=== PATIENT | male | born 1955 | race African-American/Black ===

== ENCOUNTER 2018-10-18 12:18 | Emergency (ER) | payer OTHER ==
[~2018-10-18] VITALS: Ht 172.7 cm; Wt 102.0 kg
[2018-10-18 13:32] LABS: BASOPHILS % 0.4 % (0.0-2.0); EOSINOPHILS % 5.4 % (0.0-5.0); HEMATOCRIT. 43.4 % (42.0-52.0); HEMOGLOBIN. 14.7 g/dL (14.0-18.0); LYMPHOCYTES % 28.5 % (20.0-50.0); MEAN CORPUSCULAR HEMOGLOBIN 30.7 pg (28.0-32.0); MEAN CORPUSCULAR VOLUME 90.7 fL (80.0-94.0); MEAN PLATELET VOLUME 9.2 fl (7.4-10.4); MONOCYTES % 8.8 % (2.0-8.0); NEUTROPHILS % 56.9 % (40.0-76.0); PLATELET 187 x1000/uL (130-400); RED BLOOD CELL COUNT 4.79 mill/uL (4.7-6.1); RED CELL DISTRIBUTION WIDTH 14.1 % (11.6-14.6)
[2018-10-18 13:36] LABS: CHLORIDE 106 mEq/L (98-107)
[2018-10-18 13:37] LABS: INR 0.9; PROTHROMBIN TIME 9.7 sec (9.6-11.0)
[2018-10-18] MEDS ORDERED: ACETAMINOPHEN WITH CODEINE 300/30MG TABLET PO ONE (14:15)
[2018-10-18 15:58] VITALS: BP 138/78
[2018-10-19] MEDS ORDERED: AMLO10TA4 MT (12:26)
[2018-10-19] MEDS ORDERED: LISI10TA5 MT (12:26)
[2018-10-19] MEDS ORDERED: METF-414 PO (12:26)
== END 2018-10-18 16:06 | disposition left against medical advice (07) ==
LOC: ER 12:18
DX: R60.0 Localized edema (principal); I50.9 Heart failure, unspecified; I10 Essential (primary) hypertension; F17.210 Nicotine dependence, cigarettes, uncomplicated; Z86.718 Personal history of other venous thrombosis and embolism
CPT/HCPCS: 36415; 71045; 80053; 83880; 84484; 85025; 85610; 93005; 93971; 99284; Z7610

== ENCOUNTER 2018-10-18 21:58 | Inpatient (IN) | payer MEDICAID, OTHER ==
[~2018-10-18] VITALS: Ht 172.7 cm; Wt 105.3 kg
[2018-10-18 23:59] LABS: BASOPHILS % 0.7 % (0.0-2.0); EOSINOPHILS % 5.3 % (0.0-5.0); HEMATOCRIT. 43.1 % (42.0-52.0); HEMOGLOBIN. 14.6 g/dL (14.0-18.0); MEAN CORPUSCULAR HEMOGLOBIN 30.6 pg (28.0-32.0); MEAN CORPUSCULAR VOLUME 90.3 fL (80.0-94.0); MEAN PLATELET VOLUME 9.5 fl (7.4-10.4); MONOCYTES % 9.5 % (2.0-8.0); NEUTROPHILS % 53.5 % (40.0-76.0); PLATELET 190 x1000/uL (130-400); RED BLOOD CELL COUNT 4.77 mill/uL (4.7-6.1); RED CELL DISTRIBUTION WIDTH 14.3 % (11.6-14.6)
[2018-10-19] LABS: CHLORIDE 106 mEq/L (98-107)
[2018-10-19 02:44] LABS: CLARITY URINE CLEAR (CLEAR); COLOR URINE YELLOW (YELLOW); KETONES URINE NEGATIVE (NEGATIVE); LEUKOCYTE ESTERASE URINE NEGATIVE (NEGATIVE); NITRITE URINE NEGATIVE (NEGATIVE); OCCULT BLOOD URINE NEGATIVE (NEGATIVE); PH URINE 5.5 (4.5-8.0); PROTEIN URINE NEGATIVE (NEGATIVE); SPECIFIC GRAVITY URINE 1.017 (1.005-1.030)
[2018-10-19] MEDS ORDERED: ACETAMINOPHEN 325MG TABLET PO PRN (09:45)
[2018-10-19] MEDS ORDERED: ONDANSETRON HCL 4MG/2ML INJ IV PRN (09:45)
[2018-10-19 10:28] VITALS: BP 166/82
[2018-10-19] MEDS: CLONIDINE 0.1MG TABLET PO PRN (10:33)
[2018-10-19 12:00] VITALS: BP 155/95
[2018-10-19] MEDS ORDERED: LISI10TA5 MT (12:26)
[2018-10-19] MEDS ORDERED: METF-414 PO (12:26)
[2018-10-19] MEDS ORDERED: AMLO10TA4 MT (12:26)
[2018-10-19] MEDS ORDERED: PNEUMOCOCCAL 23-VAL P-SAC VAC 0.5 ML IM ONE (12:30)
[2018-10-19] MEDS: FUROSEMIDE 40MG TABLET PO SCH (12:54)
[2018-10-19] MEDS: ENOXAPARIN 30MG/0.3ML SYR SUBCUT SCH ×2 (12:55→22:09)
[2018-10-19] MEDS: HYDRALAZINE HCL 50MG TABLET PO SCH ×2 (12:55→22:10)
[2018-10-19 15:07] LABS: *AMPHETAMINES SCREEN URINE NEGATIVE (NEGATIVE); *BARBITURATES SCREEN URINE NEGATIVE (NEGATIVE); *BENZODIAZEPINES SCREEN URINE NEGATIVE (NEGATIVE); *COCAINE SCREEN URINE NEGATIVE (NEGATIVE); OPIATES URINE SCREEN PRESUMTIVE POSITIVE (NEGATIVE)
[2018-10-19 15:08] LABS: CANNABINOID URINE SCREEN NEGATIVE (NEGATIVE); METHADONE URINE SCREEN NEGATIVE (NEGATIVE); PHENCYCLIDINE URINE SCREEN NEGATIVE (NEGATIVE)
[2018-10-19 15:15] LABS: CREATINE KINASE MB FRACTION 3.3 ng/mL (0.5-3.6); T4 FREE 0.88 ng/dL (0.76-1.46)
[2018-10-19 16:00] VITALS: BP 148/93
[2018-10-19] MEDS ORDERED: DEXTROSE 50% WATER 50ML SYRINGE IV PRN (16:00)
[2018-10-19] MEDS: BLOOD SUGAR DIAGNOSTIC STRIP TEST SCH ×2 (16:45→21:00)
[2018-10-19] MEDS: INSULIN LISPRO 100 UNITS/ML SUBCUT SCH ×2 (18:18→22:09)
[2018-10-19 20:00] VITALS: BP 167/92
[2018-10-19] MEDS: IPRATROPIUM/ALBUTEROL 0.5-3(2.5)MG/3ML NEB HHN PRN (20:44)
[2018-10-19] MEDS: BUDESONIDE 0.5MG/2ML NEB HHN SCH (20:44)
[2018-10-19] MEDS ORDERED: METOPROLOL TARTRATE 50MG TABLET PO SCH (21:00)
[2018-10-19] MEDS: AMLODIPINE 5MG TABLET PO SCH (22:10)
[2018-10-19] MEDS: ATORVASTATIN CALCIUM 20MG TABLET PO SCH (22:10)
[2018-10-20] VITALS: BP 136/78
[2018-10-20 00:23] LABS: CREATINE KINASE MB FRACTION 2.9 ng/mL (0.5-3.6)
[2018-10-20] MEDS: CLONIDINE 0.1MG TABLET PO PRN ×2 (03:47→16:32)
[2018-10-20 04:00] VITALS: BP 164/101
[2018-10-20] MEDS: INSULIN LISPRO 100 UNITS/ML SUBCUT SCH ×4 (06:27→21:00)
[2018-10-20] MEDS: BLOOD SUGAR DIAGNOSTIC STRIP TEST SCH ×4 (06:28→21:31)
[2018-10-20 06:37] LABS: BASOPHILS % 0.4 % (0.0-2.0); EOSINOPHILS % 5.1 % (0.0-5.0); HEMATOCRIT. 43.4 % (42.0-52.0); HEMOGLOBIN. 14.6 g/dL (14.0-18.0); LYMPHOCYTES % 27.1 % (20.0-50.0); MEAN CORPUSCULAR HEMOGLOBIN 30.4 pg (28.0-32.0); MEAN CORPUSCULAR VOLUME 90.6 fL (80.0-94.0); MEAN PLATELET VOLUME 9.1 fl (7.4-10.4); MONOCYTES % 9.3 % (2.0-8.0); NEUTROPHILS % 58.1 % (40.0-76.0); PLATELET 187 x1000/uL (130-400); RED BLOOD CELL COUNT 4.79 mill/uL (4.7-6.1); RED CELL DISTRIBUTION WIDTH 13.8 % (11.6-14.6)
[2018-10-20 06:58] LABS: CHLORIDE 105 mEq/L (98-107)
[2018-10-20 07:19] LABS: CREATINE KINASE MB FRACTION 2.8 ng/mL (0.5-3.6)
[2018-10-20 07:27] LABS: CREATINE KINASE 1586 IU/L (39-308)
[2018-10-20 08:00] VITALS: BP 157/98
[2018-10-20] MEDS: ASPIRIN 81MG TABLET PO SCH (09:43)
[2018-10-20] MEDS: FUROSEMIDE 40MG TABLET PO SCH (09:43)
[2018-10-20] MEDS: METOPROLOL TARTRATE 25MG TABLET PO SCH ×2 (09:44→21:30)
[2018-10-20] MEDS: AMLODIPINE 5MG TABLET PO SCH ×2 (09:44→21:31)
[2018-10-20] MEDS: HYDRALAZINE HCL 50MG TABLET PO SCH (09:44)
[2018-10-20] MEDS: ENOXAPARIN 30MG/0.3ML SYR SUBCUT SCH ×2 (09:45→21:29)
[2018-10-20] MEDS ORDERED: REGADENOSON 0.4 MG/5 ML IV NR (10:15)
[2018-10-20] MEDS: SODIUM CHLORIDE 0.9% 1,000 ML IV SCH ×2 (11:03→21:28)
[2018-10-20] MEDS ORDERED: REGADENOSON 0.4 MG/5 ML IV ONE (12:05)
[2018-10-20 16:00] VITALS: BP 182/89
[2018-10-20 20:00] VITALS: BP_SYST 156; BP_SYST 160; BP_DIAS 81; BP_DIAS 84
[2018-10-20] MEDS: HYDRALAZINE HCL 100MG TABLET PO SCH (21:30)
[2018-10-20] MEDS: ATORVASTATIN CALCIUM 20MG TABLET PO SCH (21:30)
[2018-10-20] MEDS: BUDESONIDE 0.5MG/2ML NEB HHN SCH ×2 (21:50→21:55)
[2018-10-20] MEDS: IPRATROPIUM/ALBUTEROL 0.5-3(2.5)MG/3ML NEB HHN PRN (21:55)
[2018-10-21] VITALS (9 sets, daily range): BP systolic 126–170; BP diastolic 65–101
[2018-10-21 06:20] LABS: CHLORIDE 105 mEq/L (98-107)
[2018-10-21] MEDS: BLOOD SUGAR DIAGNOSTIC STRIP TEST SCH ×4 (06:29→21:00)
[2018-10-21] MEDS: INSULIN LISPRO 100 UNITS/ML SUBCUT SCH ×4 (06:29→21:01)
[2018-10-21] MEDS: SODIUM CHLORIDE 0.9% 1,000 ML IV SCH ×2 (06:30→17:14)
[2018-10-21 06:38] LABS: BASOPHILS % 0.4 % (0.0-2.0); EOSINOPHILS % 5.2 % (0.0-5.0); HEMATOCRIT. 43.1 % (42.0-52.0); HEMOGLOBIN. 14.7 g/dL (14.0-18.0); LYMPHOCYTES % 23.6 % (20.0-50.0); MEAN CORPUSCULAR HEMOGLOBIN 30.7 pg (28.0-32.0); MEAN CORPUSCULAR VOLUME 89.9 fL (80.0-94.0); MEAN PLATELET VOLUME 9.2 fl (7.4-10.4); MONOCYTES % 10.4 % (2.0-8.0); NEUTROPHILS % 60.4 % (40.0-76.0); PLATELET 198 x1000/uL (130-400); RED BLOOD CELL COUNT 4.79 mill/uL (4.7-6.1); RED CELL DISTRIBUTION WIDTH 13.7 % (11.6-14.6)
[2018-10-21 06:43] LABS: CREATINE KINASE 1270 IU/L (39-308)
[2018-10-21] MEDS ORDERED: IODIXANOL 320MG/ML 100 ML BOTTLE IV ONE (07:22)
[2018-10-21] MEDS ORDERED: LIDOCAINE HCL 1% 20ML VIAL (Pyxis) INJ ONE (07:22)
[2018-10-21] MEDS ORDERED: FENTANYL CITRATE/PF 50MCG/ML 2ML VIAL ONE (07:57)
[2018-10-21] MEDS ORDERED: MIDAZOLAM HCL 2 MG/2 ML VIAL ONE (07:57)
[2018-10-21] MEDS ORDERED: ACETAMINOPHEN 325MG TABLET PO PRN (08:45)
[2018-10-21] MEDS ORDERED: ATROPINE SULFATE 1MG/10ML SYR IV PRN (08:45)
[2018-10-21] MEDS: ENOXAPARIN 30MG/0.3ML SYR SUBCUT SCH ×2 (09:00→21:00)
[2018-10-21] MEDS: BUDESONIDE 0.5MG/2ML NEB HHN SCH ×2 (09:58→21:50)
[2018-10-21] MEDS: FUROSEMIDE 40MG TABLET PO SCH (12:39)
[2018-10-21] MEDS: ASPIRIN 81MG TABLET PO SCH (12:40)
[2018-10-21] MEDS: AMLODIPINE 5MG TABLET PO SCH (12:40)
[2018-10-21] MEDS: METOPROLOL TARTRATE 25MG TABLET PO SCH ×2 (12:40→21:02)
[2018-10-21] MEDS: HYDRALAZINE HCL 100MG TABLET PO SCH ×2 (12:42→21:02)
[2018-10-21] MEDS: CLONIDINE 0.1MG TABLET PO PRN (17:43)
[2018-10-21] MEDS ORDERED: HYDRALAZINE 20MG/ML VIAL IV PRN (21:00)
[2018-10-21] MEDS: ATORVASTATIN CALCIUM 20MG TABLET PO SCH (21:01)
[2018-10-21] MEDS: LOSARTAN POTASSIUM 100 MG TABLET PO SCH (21:02)
[2018-10-22] VITALS (11 sets, daily range): BP systolic 134–183; BP diastolic 72–108
[2018-10-22] MEDS: SODIUM CHLORIDE 0.9% 1,000 ML IV SCH ×3 (04:24→22:39)
[2018-10-22] MEDS: BLOOD SUGAR DIAGNOSTIC STRIP TEST SCH ×4 (06:46→20:52)
[2018-10-22 07:01] LABS: BASOPHILS % 0.5 % (0.0-2.0); EOSINOPHILS % 4.9 % (0.0-5.0); HEMATOCRIT. 44.9 % (42.0-52.0); HEMOGLOBIN. 15.1 g/dL (14.0-18.0); LYMPHOCYTES % 22.5 % (20.0-50.0); MEAN CORPUSCULAR HEMOGLOBIN 30.5 pg (28.0-32.0); MEAN CORPUSCULAR VOLUME 90.6 fL (80.0-94.0); MONOCYTES % 10.7 % (2.0-8.0); NEUTROPHILS % 61.4 % (40.0-76.0); PLATELET 220 x1000/uL (130-400); RED BLOOD CELL COUNT 4.96 mill/uL (4.7-6.1)
[2018-10-22] MEDS: IPRATROPIUM/ALBUTEROL 0.5-3(2.5)MG/3ML NEB HHN PRN ×2 (07:15→15:05)
[2018-10-22] MEDS: BUDESONIDE 0.5MG/2ML NEB HHN SCH ×2 (07:15→21:03)
[2018-10-22] MEDS: INSULIN LISPRO 100 UNITS/ML SUBCUT SCH ×4 (07:20→20:52)
[2018-10-22 07:22] LABS: CHLORIDE 104 mEq/L (98-107)
[2018-10-22] MEDS ORDERED: LIDOCAINE HCL 1% 20ML VIAL (Pyxis) INJ ONE (07:24)
[2018-10-22] MEDS ORDERED: IODIXANOL 320MG/ML 200ML BOTTLE ONE (07:24)
[2018-10-22] MEDS ORDERED: DIPHENHYDRAMINE 50MG/ML VIAL ONE (07:33)
[2018-10-22] MEDS: ENOXAPARIN 30MG/0.3ML SYR SUBCUT SCH ×2 (08:01→20:39)
[2018-10-22] MEDS: ASPIRIN 81MG TABLET PO SCH (08:01)
[2018-10-22] MEDS ORDERED: MIDAZOLAM HCL 2 MG/2 ML VIAL ONE (08:20)
[2018-10-22] MEDS ORDERED: FENTANYL CITRATE/PF 50MCG/ML 2ML VIAL ONE (08:20)
[2018-10-22] MEDS: LOSARTAN POTASSIUM 100 MG TABLET PO SCH (12:26)
[2018-10-22] MEDS: HYDRALAZINE HCL 100MG TABLET PO SCH ×2 (12:26→20:37)
[2018-10-22] MEDS: FUROSEMIDE 40MG TABLET PO SCH (12:26)
[2018-10-22] MEDS: AMLODIPINE 10MG TABLET PEG SCH (12:26)
[2018-10-22] MEDS: METOPROLOL TARTRATE 25MG TABLET PO SCH ×2 (12:27→20:38)
[2018-10-22] MEDS: ATORVASTATIN CALCIUM 20MG TABLET PO SCH (20:36)
[2018-10-22] MEDS ORDERED: BUDESONIDE 0.5MG/2ML NEB ONE (20:58)
[2018-10-22] MEDS: CLONIDINE 0.1MG TABLET PO PRN (21:24)
[2018-10-23] VITALS (12 sets, daily range): BP systolic 135–160; BP diastolic 57–111
[2018-10-23] MEDS: BLOOD SUGAR DIAGNOSTIC STRIP TEST SCH ×4 (07:04→20:49)
[2018-10-23] MEDS: INSULIN LISPRO 100 UNITS/ML SUBCUT SCH ×4 (07:20→21:05)
[2018-10-23 07:28] LABS: BASOPHILS % 0.7 % (0.0-2.0); EOSINOPHILS % 6.8 % (0.0-5.0); HEMOGLOBIN. 14.5 g/dL (14.0-18.0); LYMPHOCYTES % 25.5 % (20.0-50.0); MEAN CORPUSCULAR HEMOGLOBIN 30.2 pg (28.0-32.0); MEAN CORPUSCULAR VOLUME 91.5 fL (80.0-94.0); MEAN PLATELET VOLUME 8.7 fl (7.4-10.4); MONOCYTES % 12.6 % (2.0-8.0); NEUTROPHILS % 54.4 % (40.0-76.0); PLATELET 206 x1000/uL (130-400); RED BLOOD CELL COUNT 4.81 mill/uL (4.7-6.1); RED CELL DISTRIBUTION WIDTH 14.1 % (11.6-14.6)
[2018-10-23] MEDS: SODIUM CHLORIDE 0.9% 1,000 ML IV SCH (08:57)
[2018-10-23] MEDS: AMLODIPINE 10MG TABLET PEG SCH (09:10)
[2018-10-23] MEDS: METOPROLOL TARTRATE 25MG TABLET PO SCH ×2 (09:10→20:49)
[2018-10-23] MEDS: LOSARTAN POTASSIUM 100 MG TABLET PO SCH (09:11)
[2018-10-23] MEDS: ASPIRIN 81MG TABLET PO SCH (09:11)
[2018-10-23] MEDS: ENOXAPARIN 30MG/0.3ML SYR SUBCUT SCH ×2 (09:11→20:50)
[2018-10-23] MEDS: FUROSEMIDE 40MG TABLET PO SCH (09:11)
[2018-10-23] MEDS: HYDRALAZINE HCL 100MG TABLET PO SCH ×2 (09:11→16:25)
[2018-10-23] MEDS: CLOPIDOGREL 75MG TABLET PO SCH (10:34)
[2018-10-23] MEDS: ATORVASTATIN CALCIUM 20MG TABLET PO SCH (20:49)
[2018-10-24] VITALS (12 sets, daily range): BP systolic 127–170; BP diastolic 61–105
[2018-10-24] MEDS: HYDRALAZINE HCL 100MG TABLET PO SCH ×3 (00:21→16:55)
[2018-10-24 06:11] LABS: CHLORIDE 106 mEq/L (98-107)
[2018-10-24 06:15] LABS: BASOPHILS % 0.4 % (0.0-2.0); HEMATOCRIT. 43.1 % (42.0-52.0); HEMOGLOBIN. 14.5 g/dL (14.0-18.0); LYMPHOCYTES % 27.7 % (20.0-50.0); MEAN CORPUSCULAR HEMOGLOBIN 30.6 pg (28.0-32.0); MEAN CORPUSCULAR VOLUME 90.6 fL (80.0-94.0); MEAN PLATELET VOLUME 9.1 fl (7.4-10.4); MONOCYTES % 11.6 % (2.0-8.0); NEUTROPHILS % 52.3 % (40.0-76.0); PLATELET 214 x1000/uL (130-400); RED BLOOD CELL COUNT 4.76 mill/uL (4.7-6.1); RED CELL DISTRIBUTION WIDTH 14.2 % (11.6-14.6)
[2018-10-24] MEDS: BLOOD SUGAR DIAGNOSTIC STRIP TEST SCH ×4 (07:00→20:47)
[2018-10-24] MEDS: INSULIN LISPRO 100 UNITS/ML SUBCUT SCH ×5 (08:38→20:48)
[2018-10-24] MEDS: CLOPIDOGREL 75MG TABLET PO SCH (08:40)
[2018-10-24] MEDS: LOSARTAN POTASSIUM 100 MG TABLET PO SCH (08:40)
[2018-10-24] MEDS: ENOXAPARIN 30MG/0.3ML SYR SUBCUT SCH ×2 (08:40→21:00)
[2018-10-24] MEDS: FUROSEMIDE 40MG TABLET PO SCH (08:40)
[2018-10-24] MEDS: METOPROLOL TARTRATE 25MG TABLET PO SCH ×2 (08:40→20:46)
[2018-10-24] MEDS: AMLODIPINE 10MG TABLET PEG SCH (08:40)
[2018-10-24] MEDS: ASPIRIN 81MG TABLET PO SCH (08:41)
[2018-10-24] MEDS: CLONIDINE 0.1MG TABLET PO PRN (18:29)
[2018-10-24] MEDS: ATORVASTATIN CALCIUM 20MG TABLET PO SCH (20:43)
[2018-10-24] MEDS: MINOXIDIL 2.5MG TABLET PO SCH (20:45)
[2018-10-25] VITALS (12 sets, daily range): BP systolic 134–167; BP diastolic 40–89
[2018-10-25] MEDS: HYDRALAZINE HCL 100MG TABLET PO SCH ×3 (00:37→19:02)
[2018-10-25] MEDS: BLOOD SUGAR DIAGNOSTIC STRIP TEST SCH ×4 (06:19→21:03)
[2018-10-25 07:00] LABS: BASOPHILS % 0.7 % (0.0-2.0); EOSINOPHILS % 7.2 % (0.0-5.0); HEMOGLOBIN. 14.5 g/dL (14.0-18.0); MEAN CORPUSCULAR HEMOGLOBIN 30.8 pg (28.0-32.0); MEAN CORPUSCULAR VOLUME 91.1 fL (80.0-94.0); MONOCYTES % 13.4 % (2.0-8.0); NEUTROPHILS % 52.7 % (40.0-76.0); PLATELET 231 x1000/uL (130-400); RED BLOOD CELL COUNT 4.72 mill/uL (4.7-6.1)
[2018-10-25 07:12] LABS: CHLORIDE 105 mEq/L (98-107)
[2018-10-25] MEDS: INSULIN LISPRO 100 UNITS/ML SUBCUT SCH ×4 (07:20→21:02)
[2018-10-25] MEDS: METOPROLOL TARTRATE 25MG TABLET PO SCH ×2 (09:00→21:01)
[2018-10-25] MEDS: ENOXAPARIN 30MG/0.3ML SYR SUBCUT SCH ×2 (09:00→21:00)
[2018-10-25] MEDS: AMLODIPINE 10MG TABLET PEG SCH (09:44)
[2018-10-25] MEDS: FUROSEMIDE 40MG TABLET PO SCH (09:44)
[2018-10-25] MEDS: ASPIRIN 81MG TABLET PO SCH (09:44)
[2018-10-25] MEDS: LOSARTAN POTASSIUM 100 MG TABLET PO SCH (09:44)
[2018-10-25] MEDS: CLOPIDOGREL 75MG TABLET PO SCH (09:44)
[2018-10-25] MEDS: MINOXIDIL 2.5MG TABLET PO SCH ×2 (12:01→21:03)
[2018-10-25] MEDS: ATORVASTATIN CALCIUM 20MG TABLET PO SCH (21:01)
[2018-10-26] VITALS (20 sets, daily range): BP systolic 111–159; BP diastolic 51–101
[2018-10-26] MEDS: HYDRALAZINE HCL 100MG TABLET PO SCH ×3 (00:07→18:16)
[2018-10-26 06:07] LABS: HEMATOCRIT 43.1 % (42.0-52.0); HEMOGLOBIN 14.5 g/dL (14.0-18.0); MEAN CORPUSCULAR HEMOGLOBIN 30.6 pg (28.0-32.0); PLATELET 247 x1000/uL (130-400); RED BLOOD CELL COUNT 4.73 mill/uL (4.7-6.1); RED CELL DISTRIBUTION WIDTH 14.1 % (11.6-14.6)
[2018-10-26] MEDS: BLOOD SUGAR DIAGNOSTIC STRIP TEST SCH ×4 (06:09→21:20)
[2018-10-26] MEDS: INSULIN LISPRO 100 UNITS/ML SUBCUT SCH ×4 (07:20→21:00)
[2018-10-26] MEDS ORDERED: IOHEXOL-300 100 ML BOTTLE ONE (07:27)
[2018-10-26] MEDS ORDERED: IODIXANOL 320MG/ML 200ML BOTTLE ONE (07:27)
[2018-10-26] MEDS ORDERED: LIDOCAINE HCL 1% 20ML VIAL (Pyxis) INJ ONE (07:27)
[2018-10-26] MEDS ORDERED: DIPHENHYDRAMINE 50MG/ML VIAL ONE (07:28)
[2018-10-26] MEDS ORDERED: MIDAZOLAM HCL 2 MG/2 ML VIAL ONE (07:28)
[2018-10-26] MEDS ORDERED: FENTANYL CITRATE/PF 50MCG/ML 2ML VIAL ONE (07:29)
[2018-10-26] MEDS ORDERED: ASPIRIN 325MG TABLET ONE (08:58)
[2018-10-26] MEDS ORDERED: CLOPIDOGREL 75MG TABLET ONE (08:59)
[2018-10-26] MEDS ORDERED: METOPROLOL TARTRATE 25MG TABLET PO SCH (09:00)
[2018-10-26] MEDS: CLOPIDOGREL 75MG TABLET PO SCH (09:00)
[2018-10-26] MEDS ORDERED: NICARDIPINE 100MCG/ML 10ML VIAL (CATH LAB) IV ONE (09:00)
[2018-10-26] MEDS: ASPIRIN 81MG TABLET PO SCH (09:00)
[2018-10-26] MEDS: ENOXAPARIN 30MG/0.3ML SYR SUBCUT SCH ×2 (09:00→21:20)
[2018-10-26] MEDS ORDERED: NITROGLYCERIN 50MCG/ML 10ML VIAL (CATH LAB) IV ONE (09:00)
[2018-10-26] MEDS ORDERED: HEPARIN SODIUM 1,000 UNIT/1ML VIAL IV ONE (09:00)
[2018-10-26] MEDS: MINOXIDIL 2.5MG TABLET PO SCH ×2 (09:00→21:20)
[2018-10-26] MEDS: SODIUM CHLORIDE 0.45% 1,000 ML IV SCH ×2 (10:27→19:00)
[2018-10-26] MEDS: FUROSEMIDE 40MG TABLET PO SCH (11:12)
[2018-10-26] MEDS: LOSARTAN POTASSIUM 100 MG TABLET PO SCH (11:12)
[2018-10-26] MEDS: AMLODIPINE 10MG TABLET PEG SCH (11:13)
[2018-10-26] MEDS ORDERED: ATORVASTATIN CALCIUM 40MG TABLET PO SCH (21:00)
[2018-10-26] MEDS: METOPROLOL TARTRATE 25MG TABLET PO SCH (21:19)
[2018-10-27] MEDS: HYDRALAZINE HCL 100MG TABLET PO SCH ×2 (00:07→10:35)
[2018-10-27 02:00] VITALS: BP 126/59
[2018-10-27 04:00] VITALS: BP 164/71
[2018-10-27 05:32] LABS: BASOPHILS % 0.7 % (0.0-2.0); EOSINOPHILS % 4.1 % (0.0-5.0); HEMATOCRIT. 45.2 % (42.0-52.0); HEMOGLOBIN. 15.3 g/dL (14.0-18.0); LYMPHOCYTES % 22.9 % (20.0-50.0); MEAN CORPUSCULAR HEMOGLOBIN 30.6 pg (28.0-32.0); MEAN CORPUSCULAR VOLUME 90.5 fL (80.0-94.0); MEAN PLATELET VOLUME 8.5 fl (7.4-10.4); MONOCYTES % 8.1 % (2.0-8.0); NEUTROPHILS % 64.2 % (40.0-76.0); PLATELET 271 x1000/uL (130-400)
[2018-10-27 05:39] LABS: CHLORIDE 105 mEq/L (98-107)
[2018-10-27 06:00] VITALS: BP 155/79
[2018-10-27] MEDS: BLOOD SUGAR DIAGNOSTIC STRIP TEST SCH (06:25)
[2018-10-27] MEDS: INSULIN LISPRO 100 UNITS/ML SUBCUT SCH (07:20)
[2018-10-27 08:00] VITALS: BP 141/89
[2018-10-27] MEDS: ASPIRIN 81MG TABLET PO SCH (08:36)
[2018-10-27] MEDS: AMLODIPINE 10MG TABLET PEG SCH (08:36)
[2018-10-27] MEDS: METOPROLOL TARTRATE 25MG TABLET PO SCH (08:36)
[2018-10-27] MEDS: LOSARTAN POTASSIUM 100 MG TABLET PO SCH (08:36)
[2018-10-27] MEDS: ENOXAPARIN 30MG/0.3ML SYR SUBCUT SCH (08:37)
[2018-10-27] MEDS: CLOPIDOGREL 75MG TABLET PO SCH (08:37)
[2018-10-27] MEDS: MINOXIDIL 2.5MG TABLET PO SCH (08:37)
[2018-10-27 09:37] VITALS: BP 144/81
[2018-10-27 10:39] VITALS: BP 141/101
== END 2018-10-27 11:50 | disposition home or self-care (01) | DRG 174 ==
LOC: ER 23:07 → 5WST 10-19 01:32 → EDBEDREQDT 10-19 01:38 → EDBEDREQ 10-19 01:38 → EDBEDREQTM 10-19 01:38 → ENRESERV 10-19 07:03 → 3WST 10-21 09:08
PROVIDERS: ADMIT Internal Medicine; ATTEND Internal Medicine
PROC: 4A023N7 Measurement of Cardiac Sampling and Pressure, Left Heart, Percutaneous Approach (ICD-10-PCS; 2018-10-21)
PROC: B2111ZZ Fluoroscopy of Multiple Coronary Arteries using Low Osmolar Contrast (ICD-10-PCS; 2018-10-21)
PROC: 027034Z Dilation of Coronary Artery, One Artery with Drug-eluting Intraluminal Device, Percutaneous Approach (ICD-10-PCS; principal; 2018-10-26)
DX: I21.4 Non-ST elevation (NSTEMI) myocardial infarction (principal); M62.82 Rhabdomyolysis; I11.0 Hypertensive heart disease with heart failure; I50.9 Heart failure, unspecified; E11.9 Type 2 diabetes mellitus without complications; E66.9 Obesity, unspecified; E78.5 Hyperlipidemia, unspecified; F17.210 Nicotine dependence, cigarettes, uncomplicated; I44.0 Atrioventricular block, first degree; J44.9 Chronic obstructive pulmonary disease, unspecified; N28.9 Disorder of kidney and ureter, unspecified; I16.0 Hypertensive urgency; I25.10 Atherosclerotic heart disease of native coronary artery without angina pectoris; I25.2 Old myocardial infarction; Z86.718 Personal history of other venous thrombosis and embolism; Z79.899 Other long term (current) drug therapy; Z79.84 Long term (current) use of oral hypoglycemic drugs; Z68.35 Body mass index [BMI] 35.0-35.9, adult; Z71.6 Tobacco abuse counseling; Z71.3 Dietary counseling and surveillance
CPT/HCPCS: 36415; 71045; 78452; 78582; 80048; 80061; 80305; 82550; 82553; 82962; 83036; 83880; 84439; 84443; 84484; 85027; 85347; 85379; 90732; 92928; 93005; 93017; 93306; 93454; 93458; 93970; 94640; 97162; 99285; A9500; A9558; C1769; C1874; C1887; C1893; J1200; J1644; J1650; J1815; J2250; J2785; J3010; J3490; J7030; J7620; J7626; Q9967

== ENCOUNTER 2018-10-29 00:47 | Inpatient (IN) | payer MEDICAID ==
[~2018-10-29] VITALS: Ht 172.7 cm; Wt 105.8 kg
[2018-10-29 05:27] LABS: BASOPHILS % 0.5 % (0.0-2.0); EOSINOPHILS % 1.1 % (0.0-5.0); HEMATOCRIT. 44.2 % (42.0-52.0); HEMOGLOBIN. 14.8 g/dL (14.0-18.0); LYMPHOCYTES % 16.7 % (20.0-50.0); MEAN CORPUSCULAR HEMOGLOBIN 30.3 pg (28.0-32.0); MEAN CORPUSCULAR VOLUME 90.5 fL (80.0-94.0); MEAN PLATELET VOLUME 8.5 fl (7.4-10.4); NEUTROPHILS % 72.7 % (40.0-76.0); PLATELET 264 x1000/uL (130-400); RED BLOOD CELL COUNT 4.88 mill/uL (4.7-6.1); RED CELL DISTRIBUTION WIDTH 14.4 % (11.6-14.6)
[2018-10-29 05:28] LABS: CHLORIDE 103 mEq/L (98-107)
[2018-10-29 05:49] LABS: CREATINE KINASE 1453 IU/L (39-308)
[2018-10-29] MEDS ORDERED: SODIUM CHLORIDE 0.9% 1,000 ML IV ONE (06:31)
[2018-10-29] MEDS ORDERED: ONDANSETRON HCL 4MG/2ML INJ IV ONE (07:00)
[2018-10-29] MEDS ORDERED: MORPHINE SULFATE 4 MG/ML CPJ (NOT FOR IM USE) IV ONE (07:00)
[2018-10-29 07:08] LABS: CLARITY URINE CLEAR (CLEAR); COLOR URINE YELLOW (YELLOW); KETONES URINE NEGATIVE (NEGATIVE); LEUKOCYTE ESTERASE URINE NEGATIVE (NEGATIVE); NITRITE URINE NEGATIVE (NEGATIVE); OCCULT BLOOD URINE NEGATIVE (NEGATIVE); PROTEIN URINE NEGATIVE (NEGATIVE); SPECIFIC GRAVITY URINE 1.016 (1.005-1.030); UROBILINOGEN URINE 0.2 E.U./dL (0.2-1.0)
[2018-10-29] MEDS ORDERED: LORAZEPAM 0.5MG TABLET PO PRN (08:15)
[2018-10-29] MEDS ORDERED: DOCUSATE SODIUM 100MG CAPSULE PO PRN (08:15)
[2018-10-29] MEDS ORDERED: HYDROCODONE/ACETAMINOPHEN 5/325MG TABLET PO PRN (08:15)
[2018-10-29] MEDS ORDERED: ACETAMINOPHEN 325MG TABLET PO PRN (08:15)
[2018-10-29] MEDS ORDERED: ONDANSETRON HCL 4MG/2ML INJ IV PRN (08:15)
[2018-10-29] MEDS ORDERED: IPRATROPIUM/ALBUTEROL 0.5-3(2.5)MG/3ML NEB INH PRN (08:15)
[2018-10-29] MEDS ORDERED: CLONIDINE 0.1MG TABLET PO PRN (08:15)
[2018-10-29 10:05] VITALS: BP 134/75
[2018-10-29 12:00] VITALS: BP 112/87
[2018-10-29] MEDS: ALBUTEROL (0.083%) 2.5MG/3ML NEB HHN SCH (13:22)
[2018-10-29] MEDS ORDERED: PNEUMOCOCCAL 23-VAL P-SAC VAC 0.5 ML IM ONE (14:00)
[2018-10-29 15:32] LABS: *AMPHETAMINES SCREEN URINE NEGATIVE (NEGATIVE); *BENZODIAZEPINES SCREEN URINE NEGATIVE (NEGATIVE)
[2018-10-29 15:33] LABS: *COCAINE SCREEN URINE NEGATIVE (NEGATIVE); CANNABINOID URINE SCREEN NEGATIVE (NEGATIVE); METHADONE URINE SCREEN NEGATIVE (NEGATIVE); PHENCYCLIDINE URINE SCREEN NEGATIVE (NEGATIVE)
[2018-10-29 15:34] LABS: *BARBITURATES SCREEN URINE NEGATIVE (NEGATIVE)
[2018-10-29 15:43] LABS: OPIATES URINE SCREEN NEGATIVE (NEGATIVE)
[2018-10-29 16:00] VITALS: BP 147/76
[2018-10-29] MEDS: NICOTINE 14MG PATCH TD SCH (16:00)
[2018-10-29] MEDS ORDERED: DEXTROSE 50% WATER 50ML SYRINGE IV PRN (16:00)
[2018-10-29] MEDS: CLOPIDOGREL 75MG TABLET PO SCH (16:01)
[2018-10-29] MEDS: ASPIRIN 81MG TABLET PO SCH (16:01)
[2018-10-29] MEDS: HYDRALAZINE HCL 25MG TABLET PO SCH ×2 (16:04→21:05)
[2018-10-29] MEDS: BLOOD SUGAR DIAGNOSTIC STRIP TEST SCH ×2 (18:06→21:05)
[2018-10-29] MEDS: INSULIN LISPRO 100 UNITS/ML SUBCUT SCH ×2 (18:25→21:00)
[2018-10-29 20:00] VITALS: BP 123/66
[2018-10-29] MEDS: METOPROLOL TARTRATE 25MG TABLET PO SCH (21:00)
[2018-10-29] MEDS: SODIUM CHLORIDE 0.9% 1,000 ML IV SCH (21:06)
[2018-10-30] VITALS: BP 142/81
[2018-10-30 04:00] VITALS: BP 120/68
[2018-10-30] MEDS: HYDRALAZINE HCL 25MG TABLET PO SCH (06:00)
[2018-10-30] MEDS: BLOOD SUGAR DIAGNOSTIC STRIP TEST SCH ×4 (06:20→21:41)
[2018-10-30] MEDS: INSULIN LISPRO 100 UNITS/ML SUBCUT SCH ×4 (07:42→21:41)
[2018-10-30] MEDS: ALBUTEROL (0.083%) 2.5MG/3ML NEB HHN SCH ×2 (07:58→17:00)
[2018-10-30 08:00] VITALS: BP 148/85
[2018-10-30] MEDS: NICOTINE 14MG PATCH TD SCH (09:00)
[2018-10-30] MEDS: CLOPIDOGREL 75MG TABLET PO SCH (09:10)
[2018-10-30] MEDS: METOPROLOL TARTRATE 25MG TABLET PO SCH (09:12)
[2018-10-30] MEDS: ASPIRIN 81MG TABLET PO SCH (09:15)
[2018-10-30] MEDS: NIFEDIPINE XL 60MG TAB PO SCH (09:15)
[2018-10-30] MEDS: SODIUM CHLORIDE 0.9% 1,000 ML IV SCH (09:16)
[2018-10-30 09:19] LABS: BASOPHILS % 0.3 % (0.0-2.0); EOSINOPHILS % 2.3 % (0.0-5.0); HEMATOCRIT. 39.7 % (42.0-52.0); HEMOGLOBIN. 13.3 g/dL (14.0-18.0); LYMPHOCYTES % 18.4 % (20.0-50.0); MEAN CORPUSCULAR HEMOGLOBIN 30.5 pg (28.0-32.0); MEAN CORPUSCULAR VOLUME 90.9 fL (80.0-94.0); MEAN PLATELET VOLUME 8.6 fl (7.4-10.4); MONOCYTES % 10.1 % (2.0-8.0); NEUTROPHILS % 68.9 % (40.0-76.0); PLATELET 241 x1000/uL (130-400); RED BLOOD CELL COUNT 4.37 mill/uL (4.7-6.1); RED CELL DISTRIBUTION WIDTH 14.1 % (11.6-14.6)
[2018-10-30 09:34] LABS: CHLORIDE 108 mEq/L (98-107)
[2018-10-30 09:44] LABS: CREATINE KINASE 850 IU/L (39-308)
[2018-10-30 09:45] LABS: PHOSPHORUS 2.4 mg/dL (2.5-4.9)
[2018-10-30 12:00] VITALS: BP 136/62
[2018-10-30] MEDS ORDERED: POTASSIUM-SODIUM PHOSPHATE POWDER PACKET PO NR (12:30)
[2018-10-30 16:00] VITALS: BP 148/76
[2018-10-30 20:00] VITALS: BP 133/69
[2018-10-31] VITALS: BP 121/55
[2018-10-31] MEDS: SODIUM CHLORIDE 0.9% 1,000 ML IV SCH (04:52)
[2018-10-31] MEDS: BLOOD SUGAR DIAGNOSTIC STRIP TEST SCH ×3 (05:45→17:08)
[2018-10-31] MEDS: INSULIN LISPRO 100 UNITS/ML SUBCUT SCH ×2 (05:45→12:32)
[2018-10-31 06:49] LABS: CHLORIDE 106 mEq/L (98-107)
[2018-10-31 06:50] LABS: BASOPHILS % 0.5 % (0.0-2.0); EOSINOPHILS % 3.5 % (0.0-5.0); HEMATOCRIT. 38.8 % (42.0-52.0); HEMOGLOBIN. 13.2 g/dL (14.0-18.0); LYMPHOCYTES % 26.7 % (20.0-50.0); MEAN CORPUSCULAR HEMOGLOBIN 30.7 pg (28.0-32.0); MEAN CORPUSCULAR VOLUME 90.5 fL (80.0-94.0); MEAN PLATELET VOLUME 8.1 fl (7.4-10.4); MONOCYTES % 10.8 % (2.0-8.0); NEUTROPHILS % 58.5 % (40.0-76.0); PLATELET 252 x1000/uL (130-400); RED BLOOD CELL COUNT 4.28 mill/uL (4.7-6.1); RED CELL DISTRIBUTION WIDTH 13.7 % (11.6-14.6)
[2018-10-31 06:59] LABS: PHOSPHORUS 2.4 mg/dL (2.5-4.9)
[2018-10-31 07:02] LABS: CREATINE KINASE 487 IU/L (39-308)
[2018-10-31 08:00] VITALS: BP 153/75
[2018-10-31] MEDS: NIFEDIPINE XL 60MG TAB PO SCH (08:33)
[2018-10-31] MEDS: NICOTINE 14MG PATCH TD SCH (08:33)
[2018-10-31] MEDS: CLOPIDOGREL 75MG TABLET PO SCH (08:33)
[2018-10-31] MEDS: ASPIRIN 81MG TABLET PO SCH (08:33)
[2018-10-31] MEDS: ALBUTEROL (0.083%) 2.5MG/3ML NEB HHN SCH ×3 (08:46→16:53)
[2018-10-31 12:00] VITALS: BP 155/66
[2018-10-31 15:53] VITALS: BP 155/66
[2018-10-31 16:02] VITALS: BP 151/93
[2018-10-31 17:07] LABS: T4 FREE 0.95 ng/dL (0.76-1.46)
[2018-10-31 17:28] LABS: CREATINE KINASE MB FRACTION 2.7 ng/mL (0.5-3.6)
== END 2018-10-31 17:37 | disposition home or self-care (01) | DRG 351 ==
LOC: ER 00:47 → 6WST 07:12 → EDBEDREQ 07:27 → EDBEDREQTM 07:28 → ENRESERV 08:49 → 6WST 15:46
PROVIDERS: ADMIT Internal Medicine; ATTEND Internal Medicine
DX: M62.82 Rhabdomyolysis (principal); N17.9 Acute kidney failure, unspecified; E11.22 Type 2 diabetes mellitus with diabetic chronic kidney disease; I44.1 Atrioventricular block, second degree; N14.1 Nephropathy induced by other drugs, medicaments and biological substances; I13.10 Hypertensive heart and chronic kidney disease without heart failure, with stage 1 through stage 4 chronic kidney disease, or unspecified chronic kidney disease; E78.00 Pure hypercholesterolemia, unspecified; E78.5 Hyperlipidemia, unspecified; I25.10 Atherosclerotic heart disease of native coronary artery without angina pectoris; J44.9 Chronic obstructive pulmonary disease, unspecified; E66.9 Obesity, unspecified; K59.00 Constipation, unspecified; K21.9 Gastro-esophageal reflux disease without esophagitis; N18.9 Chronic kidney disease, unspecified; T50.8X5A Adverse effect of diagnostic agents, initial encounter; Y92.89 Other specified places as the place of occurrence of the external cause; Z79.02 Long term (current) use of antithrombotics/antiplatelets; Z79.82 Long term (current) use of aspirin; I25.2 Old myocardial infarction; Z79.84 Long term (current) use of oral hypoglycemic drugs; Z79.899 Other long term (current) drug therapy; Z86.718 Personal history of other venous thrombosis and embolism; Z95.2 Presence of prosthetic heart valve; Z95.5 Presence of coronary angioplasty implant and graft; Z71.89 Other specified counseling; Z68.35 Body mass index [BMI] 35.0-35.9, adult; Z71.6 Tobacco abuse counseling; Z87.891 Personal history of nicotine dependence
CPT/HCPCS: 36415; 71045; 76770; 80061; 80305; 82550; 82553; 82962; 83036; 83735; 83880; 84100; 84439; 84443; 84484; 85379; 90732; 93005; 93306; 94640; 96360; 99291; J1815; J2270; J2405; J7030; J7611; J7620

== ENCOUNTER 2022-04-27 08:16 | Emergency (ER) | payer MEDICARE, MEDICAID ==
[~2022-04-27] VITALS: Ht 177.8 cm; Wt 91.0 kg
[2022-04-27 08:37] VITALS: BP 178/100
[2022-04-27] MEDS ORDERED: ACETAMINOPHEN 325MG TABLET PO ONE (10:45)
[2022-04-27] MEDS ORDERED: TOPUD MT (11:57)
== END 2022-04-27 12:38 | disposition home or self-care (01) ==
LOC: ER 09:22
DX: M79.672 Pain in left foot (principal); E11.9 Type 2 diabetes mellitus without complications; I10 Essential (primary) hypertension; E78.00 Pure hypercholesterolemia, unspecified; Z98.890 Other specified postprocedural states
CPT/HCPCS: 99281